=== PATIENT | female | born 1960 | race Hispanic/Latino ===

== ENCOUNTER → 2020-05-21 | Outpatient (CLI) | payer OTHER ==
[~2020-05-21] MED LIST: INSU100V12 SQ; METF-444 PO
== END | disposition home or self-care (01) ==
LOC: RAH 09:59
PROVIDERS: ATTEND Internal Medicine Cardiovascular Disease
DX: Z13.6 Encounter for screening for cardiovascular disorders (principal)
CPT/HCPCS: 75571

== ENCOUNTER → 2021-09-17 | Outpatient (CLI) | payer OTHER, MEDICARE | END | disposition home or self-care (01) | LOC: RAH 08:09 | DX: Z01.818 Encounter for other preprocedural examination (principal); L72.9 Follicular cyst of the skin and subcutaneous tissue, unspecified | CPT/HCPCS: 71046 ==

== ENCOUNTER → 2022-11-03 | Outpatient (CLI) | payer OTHER, MEDICARE | END | disposition home or self-care (01) | LOC: RAH 14:45 | PROVIDERS: ATTEND Internal Medicine | DX: M79.661 Pain in right lower leg (principal); R60.0 Localized edema | CPT/HCPCS: 93971 ==

== ENCOUNTER → 2023-05-03 | Outpatient (CLI) | payer OTHER, MEDICARE | END | disposition home or self-care (01) | LOC: RAH 12:45 | PROVIDERS: ATTEND Internal Medicine | DX: M19.042 Primary osteoarthritis, left hand (principal) | CPT/HCPCS: 73120 ==

== ENCOUNTER → 2025-01-01 | Outpatient (CLI) | payer MEDICARE, OTHER ==
--- NOTE | 2025-01-01 14:32 | HMCIMG ---
EXAM: CT Abdomen and Pelvis without Intravenous Contrast CLINICAL HISTORY: 64-year-old female with generalized intraoperative pelvic swelling TECHNIQUE: Axial computed tomography images of the abdomen and pelvis without intravenous contrast. Dose reduction technique was used including one or more of the following: automated exposure control, adjustment of mA and kV according to patient size, and/or iterative reconstruction. CONTRAST: Without COMPARISON: None provided. FINDINGS: LUNG BASES: No basilar airspace consolidation or pleural effusion. LIVER: Mild fatty liver. GALLBLADDER AND BILE DUCTS: Cholecystectomy clips. No ductal dilation. PANCREAS: Unremarkable. SPLEEN: Unremarkable. ADRENAL GLANDS: Unremarkable. KIDNEYS, URETERS, AND BLADDER: Unremarkable. No hydronephrosis or nephrolithiasis. No ureteral or bladder calculi. STOMACH AND BOWEL: No obstruction. No wall thickening. No CT evidence of colitis or acute diverticulitis. APPENDIX: No CT evidence for appendicitis. PERITONEUM: No free fluid. No free air. LYMPH NODES: No lymphadenopathy. REPRODUCTIVE: Uterus and adnexa are unremarkable. VASCULATURE: No aortic aneurysm. ABDOMINAL WALL AND SOFT TISSUES: Midline intraabdominal wall hernia containing mesenteric fat and loops of incarcerated small bowel with edema of loops. Images numbered 58 through 73 recommend surgical consult. BONES: Mild degenerative changes of the lumbar spine. No fracture or suspicious osseous abnormality. IMPRESSION: 1. Midline intraabdominal wall hernia containing mesenteric fat and loops of incarcerated small bowel with edema of loops. Recommend surgical consult. 2. Mild hepatic steatosis. /Corder
== END | disposition home or self-care (01) ==
LOC: RAH 09:06
PROVIDERS: ATTEND Internal Medicine
DX: K76.0 Fatty (change of) liver, not elsewhere classified (principal); K46.9 Unspecified abdominal hernia without obstruction or gangrene; M47.816 Spondylosis without myelopathy or radiculopathy, lumbar region; R19.07 Generalized intra-abdominal and pelvic swelling, mass and lump; R10.84 Generalized abdominal pain; Z90.49 Acquired absence of other specified parts of digestive tract
CPT/HCPCS: 74176

== ENCOUNTER 2025-01-09 10:10 | Emergency (ER) | payer OTHER ==
[~2025-01-09] VITALS: Ht 165.1 cm; Wt 93.9 kg
--- NOTE | 2025-01-09 10:20 | ERN ---
ED Note History of Present Illness Stated Complaint: OTHER Chief Complaint: Other Problems Time Seen by MD: 10:11 Dictation: PATIENT IS A 64-YEAR-OLD FEMALE COMING IN TODAY WITH MID GASTRIC PAIN WITH NAUSEA VOMITING ONSET WAS YESTERDAY. NO FEVER NO CHILLS. SHE DENIES ANY CHANGES IN URINATION, NO CHEST PAIN BACK PAIN OR SOB. SHE DOES HAVE A CAT SCAN FROM TWO WEEKS AGO THAT SHOWED SHE HAD A POSSIBLE INCARCERATED HERNIA. SHE WAS SEEN AT HER DOCTOR AT [facility] THIS MORNING AND REFERRED TO THE EMERGENCY ROOM FOR FURTHER EVALUATION AND TREATMENT. Allergies: Coded Allergies: No Known Drug Allergies (Unverified Allergy, Unknown, 04/19/17) Home Meds Reported Medications Insulin Detemir (Levemir) 100 Unit/1 Ml Vial, 100 UNIT SQ DAILY, VIAL 04/19/17 Metformin HCl (Metformin HCl) 500 Mg Tablet, 500 MG PO BID, TAB 04/19/17 Past Medical History History: Not Applicable RN Note Reviewed/Agreed w/PFSH: Yes Review of System Dictation CONSTITUTIONAL: NEGATIVE EXCEPT FOR HPI HEAD/FACE: NEGATIVE EXCEPT FOR HPI EENT: NEGATIVE EXCEPT FOR HPI RESPIRATORY: NEGATIVE EXCEPT FOR HPI GASTROINTESTINAL/ABDOMINAL: NEGATIVE EXCEPT FOR HPI MID GASTRIC PAIN WITH NAUSEA VOMITING GENITOURINARY: NEGATIVE EXCEPT FOR HPI MUSCULOSKELETAL: NEGATIVE EXCEPT FOR HPI INTEGUMENTARY: NEGATIVE EXCEPT FOR HPI NEUROLOGICAL/PSYCH: NEGATIVE EXCEPT FOR HPI HEMATOLOGIC/LYMPHATIC: NEGATIVE EXCEPT FOR HPI ALL SYSTEMS NEGATIVE, EXCEPT NOTED ABOVE. 13 POINT REVIEW OF SYSTEMS ASSESSED AND ALL NEGATIVE EXCEPT FOR ABOVE. Initial Vital Sign VS Vital Signs Date Time Temp Pulse Resp B/P (MAP) Pulse Ox O2 Delivery O2 Flow Rate FiO2 01/09/25 10:11 98.1 82 16 142/82 99 Room Air 0 01/09/25 10:18 21 Physical Exam Dictation VITAL SIGNS REVIEWED GENERAL APPEARANCE: ALERT, ORIENTED X 3, MODERATE ACUTE DISTRESS, WELL DEVELOPED, NOURISHED. HEAD AND FACE: NON-TRAUMATIC. EYES: PERRL, PINK CONJUNCTIVAS, EYELID NO TRAUMA, ANTERIOR CHAMBER WITH ARCUS SENILIS. EARS: PINNAS INTACT AND NO SIGNS OF TRAUMA OR ERYTHEMA EAR CANALS CLEAR AND NO DISCHARGE TM NO ERYTHEMA NOSE: NO DISCHARGE, NO BLEEDING. OROPHARYNX: MOUTH NORMAL, TONGUE PINK, PHARYNX CLEAR,NO ERYTHEMA, TONSILS NO EXUDATES, NO ABSCESSES NOTED, MUCOUS MEMBRANE MOIST NECK: SUPPLE, NON-TENDER, NO THYROMEGALY, NO MASSES, NO JVD, NO BRUITS BREAST:DEFERRED CHEST:NO TENDERNESS, NO CREPITUS, NO PARADOXICAL MOVEMENT, NO RETRACTIONS LUNGS:CLEAR, WELL-VENTILATED, SYMMETRIC, NO RALES, NO WHEEZING, NO RHONCHI, NO STRIDOR, GOOD BREATH SOUNDS BILATERALLY HEART: REGULAR RATE, REGULAR RHYTHM, NO MURMUR, NO GALLOPS VASCULAR: NO PERIPHERAL EDEMA, ABDOMEN: SOFT, HYPOACTIVE BOWEL SOUNDS WITH PERIUMBILICAL AND MID GASTRIC TENDERNESS WITH PALPATION. FOLLOW UP WITH LOOK FOR REDUCIBLE MASS WHEN PATIENT GETS TO BED. NO FLANK PAIN RECTAL: DEFERRED GENITAL: DEFERRED NEUROLOGICAL: NORMAL SPEECH, MOTOR FUNCTION INTACT, SENSORY FUNCTION INTACT MUSCULOSKELETAL: NECK NONTENDER, FULL RANGE OF MOTION, BACK NONTENDER, FULL RANGE OF MOTION, EXTREMITIES: NONTENDER, FULL RANGE OF MOTION SKIN: COLOR PINK, DRY, NO TURGOR, NO RASH, NO LACERATIONS, NO ABRASIONS, NO CONTUSIONS. LYMPHATIC: DEFERRED Results (Laboratory/Radiology) Laboratory/Radiology Laboratory Tests Test 01/09/25 10:35 01/09/25 10:38 Urine Color YELLOW (YELLOW) Urine Appearance CLEAR (CLEAR) Urine pH 6.0 (5.0-8.0) Urine Specific Sandy 1.025 (1.001-1.031) Urine Protein NEGATIVE mg/dL (NEGATIVE) Urine Glucose (UA) 500 mg/dL (NEGATIVE) H Urine Ketones NEGATIVE mg/dL (NEGATIVE) Urine Occult Blood NEGATIVE (NEGATIVE) Urine Nitrate NEGATIVE (NEGATIVE) Urine Bilirubin NEGATIVE mg/dL (NEGATIVE) Urine Urobilinogen 2.0 mg/dL (0.2-1.0) H Urine Leukocyte Esterase 75 Lorna/uL (NEGATIVE) H Urine RBC 2-5 /HPF (0-1) H Urine WBC 2-5 /HPF (0-1) H Urine Squamous Epithelial Cells RARE /HPF (0-2) Urine Bacteria None /HPF (None Seen) White Blood Count 6.0 K/uL (4.8-10.8) Red Blood Count 3.95 MIL/uL (4.00-5.50) L Hemoglobin 12.5 g/dL (12.0-16.0) Hematocrit 36.8 % (36-48) Mean Corpuscular Volume 93.2 fL (79-99) Mean Corpuscular Hemoglobin 31.6 pg (27.0-33.0) Mean Corpuscular Hemoglobin Concent 34.0 g/dL (32.0-36.0) Red Cell Distribution Width 11.8 % (11.0-15.5) Platelet Count 241 K/uL (130-400) Mean Platelet Volume 9.4 fL (7.5-10.5) Immature Granulocyte % (Auto) 0.3 % (0-1) Neutrophils (%) (Auto) 58.5 % (40.0-77.0) Lymphocytes (%) (Auto) 32.1 % (21.0-51.0) Monocytes (%) (Auto) 7.0 % (3.0-13.0) Eosinophils (%) (Auto) 1.8 % (0.0-8.0) Basophils (%) (Auto) 0.3 % (0.0-5.0) Neutrophils # (Auto) 3.5 K/uL (1.8-7.7) Lymphocytes # (Auto) 1.9 K/uL (1.0-4.8) Monocytes # (Auto) 0.4 K/uL (0.1-1.0) Eosinophils # (Auto) 0.11 K/uL (0.00-0.70) Basophils # (Auto) 0.02 K/uL (0.00-0.20) Absolute Immature Granulocyte (auto 0.02 K/uL (0-1) Nucleated Red Blood Cells 0.0 % (0.0-0.19) Sodium Level 135 mmol/L (136-145) L Potassium Level 4.0 mmol/L (3.5-5.1) Chloride Level 98 mmol/L (101-111) L Carbon Dioxide Level 31 mmol/L (21-32) Blood Urea Nitrogen 21 mg/dL (7-18) H Creatinine 0.7 mg/dL (0.5-1.0) Glomerular Filtration Rate Calc 97 mL/min (>90) Random Glucose 229 mg/dL (70-105) H Total Calcium 9.0 mg/dL (8.5-10.1) Troponin I High Sensitivity 6 ng/L (4-50) Lipase 51 U/L (16-77) T ABDOMEN/PELVIS W/CONTRAST REASON: MID GASTRIC PAIN WITH NAUSEA VOMITING. HISTORY OF HERNIA COMPARISON: None. FINDINGS: Lung bases are clear. There are no focal liver lesions. There is grade 1 hepatic steatosis of the liver. There are normal-appearing kidneys.. Spleen and pancreas appear unremarkable. The gallbladder is surgically absent with clips in the gallbladder fossa.. Bowel loops appear unremarkable. This includes normal appearance of the appendix there is an umbilical hernia with a wall defect of approximately 6.2 cm. The hernia contains loops of bowel which are not incarcerated. The hernia itself measures 10.4 x 5.1 cm. There is no evidence of free fluid or intraperitoneal air. There are no focal fluid collections. Aorta and retroperitoneum appear normal as do pelvic soft tissue structures. The anterior abdominal wall is intact. Osseous structures demonstrate multilevel osteoarthritic changes and disc disease most pronounced at L5-S1 followed by other levels. There is mild osteopenia. The uterus is mildly deviated to the left side there is no mass or free fluid seen in the pelvic region. IMPRESSION: 1. Umbilical hernia with loops of bowel which are not incarcerated measuring 10.4 x 5.1 cm. 2. Other findings as described above. CT was performed with one or more following dose reduction techniques: automated exposure control, adjustment of the mA and kv according to patient's size, or use of a iterative reconstruction technique. Labs Reviewed?: Yes EKG Comment: EKG SINUS RHYTHM WITH A RIGHT BUNDLE BRANCH BLOCK/HEART RATE 78 CHRONIC CHANGES LEADS TWO AND THREE ED Course ED Course Orders Procedure Category Date Status Time Cbc With Differential LAB 01/09/25 Complete 10:16 Troponin I High LAB 01/09/25 Complete Sensitivity 10:16 Urinalysis Profile LAB 01/09/25 Complete 10:16 Ct Abdomen/Pelvis CT 01/09/25 Resulted W/Contrast 10:16 12 Lead Ekg Tracing- EKG 01/09/25 Resulted Technical 10:16 0.9%Nacl 1000ml (Ns PHA 01/09/25 Complete 1000ml) 10:30 Morphine 2mg Syg PHA 01/09/25 Complete (Morphine 2mg Syg) 10:30 Ondansetron 4mg Inj PHA 01/09/25 Complete (Zofran 4mg Inj) 10:30 Lipase LAB 01/09/25 Complete 10:16 Basic Metabolic Panel LAB 01/09/25 Complete 10:16 Culture Urine INOCENTE 01/09/25 In Process 10:59 Iohexol (Omnipaque) PHA 01/09/25 Complete 12:38 Current Medications Medications (Trade) Dose Ordered Sig/Ynes Route PRN Reason Start Time Stop Time Status Last Admin Dose Admin Iohexol (Omnipaque) 75 ml STK-MED ONCE IV 01/09/25 12:38 01/09/25 12:38 DC Morphine Sulfate (morPHINE 2MG SYG) 2 mg ONCE ONCE IVP 01/09/25 10:30 01/09/25 10:31 DC 01/09/25 11:14 Ondansetron HCl (zoFRAN 4MG INJ) 4 mg ONCE ONCE IVP 01/09/25 10:30 01/09/25 10:31 DC 01/09/25 11:14 Sodium Chloride 1,000 ml @ 0 mls/hr ONCE ONCE IV 01/09/25 10:30 01/09/25 10:31 DC 01/09/25 11:14 Vital Signs Date Time Temp Pulse Resp B/P (MAP) Pulse Ox O2 Delivery O2 Flow Rate FiO2 01/09/25 10:18 98.1 82 16 142/82 99 Room Air* 0 21 01/09/25 10:11 98.1 82 16 142/82 99 Room Air 0 1412/SPOKE TO PATIENT AND HER AT LENGTH REGARDING FINDINGS. THERE IS NO REDUCIBLE LESION AT THIS TIME. NO INCARCERATION. WE WILL DISCHARGE PATIENT HOME WITH THE ABDOMINAL BINDER AND HAVE HER REFERRED TO Medical Decision Making MDM MDM: DIFFERENTIAL DIAGNOSIS: INCARCERATED HERNIA/STRANGULATED HERNIA/ELECTROLYTE IMBALANCE/DEHYDRATION RATIONALE: TESTS CONSIDERED AND ORDERED SECONDARY TO SHARED DECISION MAKING INCLUDE: LABS/CT PREVIOUS OUTSIDE RECORDS REVIEWED: OLD ER VISITS. RISK OF COMPLICATION AND/OR MORBIDITY OR MORTALITY OF PATIENT MANAGEMENT: NONE MEDICATIONS-PER MEDICATION RECONCILIATION NEED FOR HOSPITALIZATION: PATIENT DOES NOT MEET CRITERIA FOR HOSPITALIZATION. NONE NEED FOR EMERGENCY MAJOR/MINOR SURGERY: NO THERE ARE NO SOCIAL CONCERNS WITH THIS PATIENT. PRESCRIPTION DRUG MANAGEMENT PRESCRIPTIONS WILL INCLUDE SYMPTOMATIC CARE PATIENT'S PRIOR EXTERNAL MEDICAL RECORDS FROM OTHER ER VISITS WERE REVIEWED BY ME INDICATED. PRIOR TESTING AND RESULTS FROM PREVIOUS VISITS WERE REVIEWED. PRIOR TESTS WERE TAKEN INTO ACCOUNT WITH MEDICAL DECISION MAKING AND RESOURCE UTILIZATION, INDEPENDENT HISTORIAN/HISTORIANS WERE USED TO OBTAIN COMPLETE MEDICAL HISTORY. I INDEPENDENTLY INTERPRETED THE TEST THAT WERE PERFORMED, RESULTS WERE REVIEWED BY ME AND CONSIDERED FINDINGS ON RADIOLOGY IF ORDERED. MEDICAL MANAGEMENT AND EXAMINATION INTERPRETATION DISCUSSIONS WERE HAD BY ME WITH OTHER QUALIFIED HEALTHCARE PROFESSIONALS INDICATED FOR THE PATIENT'S CARE. DX & DISP Disposition: Discharge Departure Impression: Primary Impression: Ventral hernia Additional Impressions: Hyponatremia, Uncontrolled diabetes mellitus Condition: Stable Additional Instructions: FOLLOW-UP WITH PRIMARY CARE PROVIDER IN 1 TO 2 DAYS. TAKE MEDICATIONS DIRECTED HERE IN THE EMERGENCY ROOM. OKAY TO CONTINUE HOME MEDICATIONS UNLESS OTHERWISE DISCUSSED DURING YOUR VISIT IN THE EMERGENCY ROOM TODAY. RETURN TO YOUR NEAREST EMERGENCY ROOM IF SYMPTOMS WORSEN OR IF THERE IS NO IMPROVEMENT. CALL 911 IF YOU NEED IMMEDIATE ASSISTANCE. TAKE TYLENOL OR MOTRIN [id number] NEEDED AND IF NO CONTRAINDICATIONS ARE PRESENT. INCREASE ORAL HYDRATION. A WOUND CULTURE OR URINE CULTURE WAS ORDERED HERE IN THE EMERGENCY ROOM DEPARTMENT PLEASE FOLLOW-UP WITH PRIMARY CARE PROVIDER AND ADVISE THEM TO GET REPEAT PORTS FROM OUR FACILITY. IF YOU HAD ANY IRVING WRAP/SPLINTS THAT WERE APPLIED HERE, PLEASE DO NOT REMOVE THEM UNTIL YOU SEE YOUR PRIMARY CARE OR SPECIALTY. SUGGEST ABDOMINAL BINDER/[id number] AT ALL TIMES WHILE AWAKE. NO LIFTING GREATER THAN 10 LB UNTIL CLEARED BY SURGEON, CALL HER FOR AN APPOINTMENT TODAY OR TOMORROW. Referrals: CARMEN GREY MD (PCP) YEIMY WEIR MD Time of Disposition: 14:16 I have reviewed the case, and I agree with, Diagnosis and Plan LAZARUS WEAVER NP Jan 09, 2025 10:20
[2025-01-09 10:44] LABS: IMMATURE GRANULOCYTE ABSOLUTE 0.02 K/uL (0-1); NUCLEATED RED BLOOD CELLS 0.0 % (0.0-0.19); PLATELET COUNT (AUTO) 241 K/uL (130-400); RED BLOOD CELL COUNT(AUTO) 3.95 MIL/uL (4.00-5.50); RED CELL DISTRIBUTION WIDTH 11.8 % (11.0-15.5); WHITE BLOOD COUNT (AUTO) 6.0 K/uL (4.8-10.8)
[2025-01-09 10:45] LABS: APPEARANCE,URINE CLEAR (CLEAR); GLUCOSE, URINE (UA) 500 mg/dL (NEGATIVE); LEUKOCYTE ESTERASE ,URINE 75 Leu/uL (NEGATIVE); NITRATE,URINE NEGATIVE (NEGATIVE); OCCULT BLOOD,URINE NEGATIVE (NEGATIVE)
[2025-01-09 10:52] LABS: CREATININE 0.7 mg/dL (0.5-1.0); GLOMERULAR FILTR. RATE CALC 97.0 mL/min (>90); GLUCOSE,RANDOM 229.0 mg/dL (70-105); SODIUM SERUM 135.0 mmol/L (136-145); UREA NITROGEN, BLOOD 21.0 mg/dL (7-18)
--- NOTE | 2025-01-09 10:54 | EKG ---
[facility] Test Date: 2025-01-09 Test Time: 10:42:08 Pat Name: MARY KATE ARSHAD Department: ED Room: Gender: F Audio Visual Director: [id number] : 1960 Requested By: LAZARUS WEAVER Order Number: [id number] Reading MD: Forest Serna Measurements Intervals Baltic Rate: 78 P: 33 CO: 162 QRS: -46 QRSD: 138 T: 12 QT: 437 QTc: 499 Interpretive Statements Sinus rhythm Right bundle branch block Inferior infarct, old No previous ECG available for comparison Electronically Signed On 01-09-2025 13:42:07 CDT by Forest Serna Please click the below link to view image of tracing.
[2025-01-09 10:59] LABS: ADD UA MICROSCOPIC YES
[2025-01-09 11:00] LABS: SQUAMOUS EPITHELIAL CELL,UR RARE /HPF (0-2)
[2025-01-09] MEDS: 0.9%NACL 1000ML 1,000 ML IV ONE (11:14)
[2025-01-09] MEDS ORDERED: IOHEXOL-350 75 ML VIAL IV ONE (12:38)
--- NOTE | 2025-01-09 13:44 | HMCIMG ---
CT ABDOMEN/PELVIS W/CONTRAST REASON: MID GASTRIC PAIN WITH NAUSEA VOMITING. HISTORY OF HERNIA COMPARISON: None. FINDINGS: Lung bases are clear. There are no focal liver lesions. There is grade 1 hepatic steatosis of the liver. There are normal-appearing kidneys.. Spleen and pancreas appear unremarkable. The gallbladder is surgically absent with clips in the gallbladder fossa.. Bowel loops appear unremarkable. This includes normal appearance of the appendix there is an umbilical hernia with a wall defect of approximately 6.2 cm. The hernia contains loops of bowel which are not incarcerated. The hernia itself measures 10.4 x 5.1 cm. There is no evidence of free fluid or intraperitoneal air. There are no focal fluid collections. Aorta and retroperitoneum appear normal as do pelvic soft tissue structures. The anterior abdominal wall is intact. Osseous structures demonstrate multilevel osteoarthritic changes and disc disease most pronounced at L5-S1 followed by other levels. There is mild osteopenia. The uterus is mildly deviated to the left side there is no mass or free fluid seen in the pelvic region. IMPRESSION: 1. Umbilical hernia with loops of bowel which are not incarcerated measuring 10.4 x 5.1 cm. 2. Other findings as described above. CT was performed with one or more following dose reduction techniques: automated exposure control, adjustment of the mA and kv according to patient's size, or use of a iterative reconstruction technique.
[2025-01-09 14:20] VITALS: BP 137/79; PULSE 80; RESP 16; TEMP 98.1; O2SAT 99
== END 2025-01-09 14:34 | disposition home or self-care (01) ==
LOC: EDH 10:10
DX: K43.9 Ventral hernia without obstruction or gangrene (principal); E87.1 Hypo-osmolality and hyponatremia; E11.65 Type 2 diabetes mellitus with hyperglycemia; Z79.4 Long term (current) use of insulin; Z79.84 Long term (current) use of oral hypoglycemic drugs
CPT/HCPCS: 99284; 74177; 96374; 96361; 96375; 84484; 80048; 83690; 85025; 87086; 81001; 36415; 93005; J2270; J7030; J2405; Q9967